=== PATIENT | male | born 1965 | race Caucasian/White ===

== ENCOUNTER 2023-06-04 14:20 | Day surgery (SDC) | payer OTHER ==
[2023-06-04] MEDS ORDERED: Propofol 200 MG/20 ML SDV ONE ×2 (15:24→15:52)
[2023-06-04] MEDS ORDERED: Ondansetron 4 MG/2 ML SDV ONE (15:24)
[2023-06-04] MEDS ORDERED: fentaNYL 100 MCG/2 ML SDV ONE (15:25)
[2023-06-04] MEDS ORDERED: Midazolam 1 MG/ML 2 ML SDV ONE (15:25)
[2023-06-04] MEDS ORDERED: Lidocaine 1% 2 ML ONE (15:26)
[2023-06-04] MEDS ORDERED: Succinylcholine 200 MG/10 ML MDV ONE (16:23)
[2023-06-04] MEDS ORDERED: Lactated Ringers 1,000 ML ONE (16:43)
[2023-06-04] MEDS ORDERED: fentaNYL 100 MCG/2 ML SDV IVPUSH PRN (17:14)
[2023-06-04] MEDS ORDERED: HYDROmorphone 0.5 MG/0.5 ML Syringe IVPUSH PRN (17:14)
[2023-06-04] MEDS ORDERED: Ondansetron 4 MG/2 ML SDV IVPUSH PRN (17:14)
== END 2023-06-04 17:57 | disposition home or self-care (01) ==
LOC: JD.ED 14:20 → JD.SDS 15:06
PROVIDERS: ATTEND Specialist
DX: T18.128A Food in esophagus causing other injury, initial encounter (principal)
CPT/HCPCS: 43247; 99284; J0330; J2250; J2405; J2704; J3010; J7120; 99285; J3490